=== PATIENT | female | born 1990 | race Two or more races ===

== ENCOUNTER 2019-07-02 23:58 | Emergency (ER) | payer OTHER ==
[~2019-07-02] VITALS: Ht 152.4 cm; Wt 47.6 kg
[2019-07-03] MEDS ORDERED: PEPCID AC20 MG PO (04:49)
[2019-07-03] MEDS ORDERED: ONDANSETRON ODT4 MG SL (04:49)
== END 2019-07-03 05:14 ==
LOC: ER 23:58
DX: K52.89 Other specified noninfective gastroenteritis and colitis (principal); R10.11 Right upper quadrant pain; R51 Headache; R00.2 Palpitations; R11.0 Nausea; R07.89 Other chest pain

== ENCOUNTER 2020-10-24 | Outpatient (CLI) | payer OTHER ==
[~2020-10-24] MED LIST: ATARAX50 MG; ONDANSETRON ODT4 MG SL; PEPCID AC20 MG PO
== END 2020-10-24 14:28 | disposition home or self-care (01) ==
LOC: PPH VACUNA
DX: Z23 Encounter for immunization (principal)

== ENCOUNTER 2021-01-04 13:01 | Outpatient (CLI) | payer OTHER | END 2021-01-04 13:31 | disposition home or self-care (01) | LOC: SONOGRAMA 13:01 | PROVIDERS: ATTEND Surgery | DX: N60.11 Diffuse cystic mastopathy of right breast (principal); N60.12 Diffuse cystic mastopathy of left breast; N61.1 Abscess of the breast and nipple ==

== ENCOUNTER 2021-01-04 15:13 | Outpatient (CLI) | payer OTHER | END 2021-01-04 15:29 | disposition home or self-care (01) | LOC: LAB 15:13 | PROVIDERS: ATTEND Surgery | DX: N61.1 Abscess of the breast and nipple (principal) ==

== ENCOUNTER 2023-11-12 09:26 | Emergency (ER) | payer OTHER ==
[~2023-11-12] VITALS: Ht 154.9 cm; Wt 56.7 kg
[2023-11-12] MEDS ORDERED: NASAL MIST126 ML (09:40)
[2023-11-12] MEDS ORDERED: ZYRTEC10 MG PO (09:40)
[2023-11-12 12:50] LABS: HEMATOCRIT 40.8 % (36.0-45.00); HEMOGLOBIN 14.1 g/dL (12.0-15.00); MEAN CELL VOLUME 85.7 fL (80.00-100.00); MEAN CORPUSCULAR HEMOGLOBIN 29.5 pg (27.00-32.0); MEAN CORPUSCULAR HGB CONC 34.4 g/dl (32.0-36.0); PLATELET COUNT 249 K/uL (150-450); RED BLOOD COUNT 4.76 M/uL (4.00-6.00); RED CELL DISTRIBUTION WIDTH 12.8 % (11.5-14.5)
== END 2023-11-12 14:54 | disposition home or self-care (01) ==
LOC: ER 09:28
PROVIDERS: General Practice
DX: J11.1 Influenza due to unidentified influenza virus with other respiratory manifestations (principal); R05.9 Cough, unspecified; Z20.822 Contact with and (suspected) exposure to COVID-19; Z88.9 Allergy status to unspecified drugs, medicaments and biological substances